=== PATIENT | female | born 1975 | race Caucasian/White ===

== ENCOUNTER 2024-12-03 10:40 | Day surgery (SDC) | payer OTHER ==
[2024-12-03] MEDS ORDERED: BETADINE 5% OPHTHALMIC 30 ML OP NR (11:00)
[2024-12-03] MEDS ORDERED: VIGAMOX/BSS 0.15% SYR IO NR (11:00)
[2024-12-03] MEDS ORDERED: TRIAMCINOLONE 15 MG/ML INJ INTRAOP NR (11:00)
[2024-12-03] MEDS ORDERED: Lactated Ringers 1,000 ML IV ONE (11:07)
[2024-12-03 11:21] VITALS: RESP 16
[2024-12-03] MEDS: TETRACAINE 0.5% STERI-UNIT SOL OP ONE ×2 (11:31→11:49)
[2024-12-03] MEDS: Ak-Dilate OPHTHALMIC*** 0.71 ML, Cyclogyl 1% OPHTH SOL 0.71 ML, GATIFLOXACIN 0.5% OPHTH... OP SCH (11:32)
[2024-12-03] MEDS: Lactated Ringers 1,000 ML IV SCH (11:48)
[2024-12-03] MEDS ORDERED: DEXTENZA OP NR (13:00)
[2024-12-03] MEDS ORDERED: DEXMEDETOMIDINE 80 MCG/20ML-NS IV NR (13:00)
[2024-12-03] MEDS ORDERED: Zofran 4 MG/2 ML VIAL IV PRN (13:00)
[2024-12-03] MEDS ORDERED: Epinephrine Preservative Free 1 MG/ML INTRAOP NR (13:00)
[2024-12-03] MEDS ORDERED: propofoL IV ONE ×2 (14:34→14:45)
[2024-12-03] MEDS ORDERED: SUBLIMAZE 100 MCG/2 ML ONE (14:41)
[2024-12-03] MEDS: ACETAZOLAMIDE 250 MG TABLET PO ONE (15:22)
[2024-12-03 15:31] VITALS: BP 113/82; PULSE 58; TEMP 96.5; O2SAT 99
== END 2024-12-03 15:43 | disposition home or self-care (01) ==
LOC: SDC 10:40
PROVIDERS: ATTEND Ophthalmology
DX: H25.811 Combined forms of age-related cataract, right eye (principal)
CPT/HCPCS: C1780; J0171; J1096; J2704; J3010; A9270-GY